=== PATIENT | male | born 2000 | race Caucasian/White ===

== ENCOUNTER 2024-02-12 13:44 | Emergency (ER) | payer SELFPAY ==
[2024-02-12 14:19] VITALS: BP 120/95; PULSE 109; RESP 17; TEMP 36.8; O2SAT 100
--- NOTE | 2024-02-12 17:34 | ED.GENADULT ---
HPI - General Adult General Chief complaint: Unspecified Stated complaint: med refill Time Seen by Provider: 02/12/24 16:57 Source: patient Mode of arrival: ambulatory Limitations: no limitations History of Present Illness HPI narrative: Patient is a 23-year-old male who presents the ED with his friend with concern for medication refill. Patient has history of bipolar disorder and has previously been on Wellbutrin 174 mg and Seroquel 200 mg. This was previously prescribed by a psychiatrist. Patient states he moves recently and does not currently have a psychiatrist or primary care doctor. He would like his medications refilled. He states he has been increasingly sad over the last 2.5 weeks and does not want to go into another episode. He states he has not been sleeping well and has been fatigued. Denies SI or HI. States he left work today to come here. Related Data Allergies Allergy/AdvReac Type Severity Reaction Status Date / Time amoxicillin Allergy Rash Verified 02/12/24 14:23 Review of Systems Review of Systems: All systems reviewed & are unremarkable except as noted in HPI. All systems reviewed & are unremarkable except as noted in HPI and below PMFSH Past Medical History Medical History (Updated 02/12/24 @ 17:59 by Tootie Callahan PA-C) Bipolar disorder Exam Narrative: GENERAL: Well appearing, well-nourished, non-toxic, in no acute distress. HEAD: Normocephalic, atraumatic. RESPIRATORY: Airway patent, respirations nonlabored. CARDIOVASCULAR: Regular rate and rhythm MUSCULOSKELETAL: Moves all extremities. No gross deformities. SKIN: Warm, dry, normal color. NEURO: A&O X3. Speech clear. PSYCHIATRIC: Appropriate mood and affect. Normal interaction. Course Vital Signs Vital signs: Vital Signs Temperature 98.2 F 02/12/24 14:19 Pulse Rate 109 H 02/12/24 14:19 Respiratory Rate 17 02/12/24 14:19 Blood Pressure 120/95 H 02/12/24 14:19 Pulse Oximetry 100 02/12/24 14:19 Oxygen Delivery Room Air 02/12/24 14:19 Temperature 98.2 F 02/12/24 14:19 Pulse Rate 109 H 02/12/24 14:19 Respiratory Rate 17 02/12/24 14:19 Blood Pressure 120/95 H 02/12/24 14:19 Pulse Oximetry 100 02/12/24 14:19 Oxygen Delivery Room Air 02/12/24 14:19 Medical Decision Making MDM Narrative Medical decision making narrative: Patient presented to ED with concern for medication refill of his psychiatric medications. Has been off of medications for greater than 6 months, Seroquel and Wellbutrin. Patient reporting increasingly depressed mood over last few weeks, but denies SI or HI. Exam is unremarkable. Vital signs are stable. Patient is in no acute distress. Again adamantly denies SI or HI. Patient does not currently have a psychiatrist or primary care doctor. I discussed with patient that these medications require close monitoring and titration, incremental increases in doses, and that given patient has been off of the medication for greater than 1 month, he would need to start at a decreased dose and titrate up with close monitoring/follow-up. I advised that I would not be able to refill patient's medications today due to these reasons, but discussed having the crisis team come and speak to patient and provide resources, arrange follow-up. Patient declined this. He does not wish to speak to the crisis team. He does not feel he is in crisis. He again denies SI or HI. He would like to be discharged. He would like information for psychiatry and primary care follow-up. He would like a work note. I encouraged patient to speak to crisis team and jump start process into finding a new psychiatrist/counselor, however again patient declined. He is alert and oriented x4, capable of making his own decisions. He does not appear acutely psychotic. Will discharge patient. Given mental health and provider resources from the ED. Per ED nurse, patient left prior to receiving discharge
== END 2024-02-12 18:35 | disposition home or self-care (01) ==
LOC: ANHED 17:56
PROVIDERS: Emergency Provider Physician Assistant
DX: F31.9 Bipolar disorder, unspecified (principal); Z76.0 Encounter for issue of repeat prescription
CPT/HCPCS: 99281

== ENCOUNTER 2025-03-18 11:52 | Emergency (ER) | payer BC, SELFPAY ==
[2025-03-18 11:56] VITALS: BP 128/83; PULSE 65; RESP 18; TEMP 36.4; O2SAT 100
[2025-03-18 12:07] VITALS: BP 109/70; PULSE 66; RESP 15; TEMP 36.6; O2SAT 100
--- NOTE | 2025-03-18 13:56 | ED.GENADULT ---
HPI - General Adult General Chief complaint: Back Pain/Injury Stated complaint: back pain Time Seen by Provider: 03/18/25 12:49 History of Present Illness HPI narrative: This is a 24-year-old male presenting with lower back strain. Patient was at work yesterday when he picked up a heavy object. He felt an immediate spasm right side of his back. Since then he is having increased pain with movement. No red flags such as trauma fevers history of cancer urinary retention bowel incontinence saddle anesthesia weakness to his lower extremities. Related Data Allergies Allergy/AdvReac Type Severity Reaction Status Date / Time amoxicillin Allergy Rash Verified 03/18/25 11:59 [facility] Past Medical History Medical History (Updated 03/18/25 @ 13:58 by Bairon Mills MD) Bipolar disorder Exam Narrative: APPEARANCE: No apparent distress. Head: atraumatic. EYES: EOMI, NOSE: Atraumatic NECK: Trachea midline RESPIRATORY: No increased rate of breathing CARDIOVASCULAR: RRR, ABDOMINAL: Non-distended MUSCULOSKELETAl: Tenderness over the paralumbar muscles. No midline tenderness. Pain is reproducible with movement. NEURO: Alert. Cranial nerves 2-12 grossly intact. Sensation light touch, motor function cerebellar function intact for 4 extremities. Gait exam was normal. SKIN:: Warm, dry. Normal color PSYCHIATRIC: Normal affect Course Vital Signs Vital signs: Vital Signs Temperature 97.5 F L 03/18/25 11:56 Pulse Rate 65 03/18/25 11:56 Respiratory Rate 18 03/18/25 11:56 Blood Pressure 128/83 03/18/25 11:56 Pulse Oximetry 100 03/18/25 11:56 Oxygen Delivery Room Air 03/18/25 11:56 Temperature 97.9 F 03/18/25 12:07 Pulse Rate 66 03/18/25 12:07 Respiratory Rate 15 03/18/25 12:07 Blood Pressure 109/70 03/18/25 12:07 Pulse Oximetry 100 03/18/25 12:07 Oxygen Delivery Room Air 03/18/25 12:07 Medical Decision Making [facility] Narrative Medical decision making narrative: -Course: 24-year-old male presenting with lower back strain. No red flags on history or physical. Treated with Toradol, Tylenol, lidocaine patch, Robaxin. Discharged. Return precautions given -DDX includes but is not limited to: Lower back strain, muscle spasms Vital Signs Vital Signs: Vital Signs Temperature 97.5 F L 03/18/25 11:56 Pulse Rate 65 03/18/25 11:56 Respiratory Rate 18 03/18/25 11:56 Blood Pressure 128/83 03/18/25 11:56 Pulse Oximetry 100 03/18/25 11:56 Oxygen Delivery Room Air 03/18/25 11:56 Temperature 97.9 F 03/18/25 12:07 Pulse Rate 66 03/18/25 12:07 Respiratory Rate 15 03/18/25 12:07 Blood Pressure 109/70 03/18/25 12:07 Pulse Oximetry 100 03/18/25 12:07 Oxygen Delivery Room Air 03/18/25 12:07 Discharge Plan Discharge Clinical Impression: Strain of lumbar region Patient Disposition: Home Condition: Stable Instructions: Antibiotic Form, Acute Low Back Pain (ED) Patient Language: Indonesian Follow-up/Referrals: PHYSICIAN,CHIEF FUNDRAISING OFFICER [Primary Care Provider, Internal Medicine]
[2025-03-18] MEDS: KETOROLAC 30 MG/ML VIAL (*BKC) IM (14:11)
[2025-03-18] MEDS: ACETAMINOPHEN 500 MG TABLET 1000 MG PO (14:12)
[2025-03-18] MEDS: LIDOCAINE 5% PATCH 1 PATCH TRANSDERM (14:12)
== END 2025-03-18 14:23 | disposition home or self-care (01) ==
PROVIDERS: Emergency Provider Emergency Medicine
DX: S39.012A Strain of muscle, fascia and tendon of lower back, initial encounter (principal); X50.0XXA Overexertion from strenuous movement or load, initial encounter
CPT/HCPCS: 96372; 99283; A9270; J1885